=== PATIENT | female | born 1940 | race Hispanic/Latino ===

== ENCOUNTER 2020-03-07 07:07 | Day surgery (SDC) | payer MEDICARE ==
[2020-03-07] MEDS ORDERED: ASPIRIN EC 325 MG TAB PO NR (07:30)
[2020-03-07] MEDS ORDERED: ASPIRIN EC 325 MG TAB PO ONE (07:40)
[2020-03-07] MEDS: SODIUM CHLORIDE 0.9% 500 ML 500 ML IV SCH ×2 (07:54→09:08)
[2020-03-07] MEDS ORDERED: HEPARIN 10,000 UNITS/10 ML VIAL ONE (08:27)
[2020-03-07] MEDS ORDERED: HEPARIN/NS 5000 UNIT/500ML 1,000 ML IR ONE (08:27)
[2020-03-07] MEDS ORDERED: LIDOCAINE (2%) 20 MG/1 ML VIAL 20 ML MDV INFILTRATI ONE (08:28)
[2020-03-07] MEDS ORDERED: VERAPAMIL 5 MG/2 ML INJ ONE (08:28)
[2020-03-07] MEDS ORDERED: NITROGLYCERIN SYRINGE 3 ML ONE (08:28)
[2020-03-07] MEDS: fentaNYL 100 MCG/2 ML INJ ONE ×2 (09:14→09:26)
[2020-03-07] MEDS: MIDAZOLAM 2 MG/2 ML INJ ONE ×2 (09:14→09:26)
[2020-03-07] MEDS ORDERED: MIDAZOLAM 2 MG/2 ML INJ ONE (09:46)
[2020-03-07] MEDS ORDERED: fentaNYL 100 MCG/2 ML INJ ONE (09:47)
--- NOTE | 2020-03-07 10:31 | Cardiac Catherization Report ---
INDICATION FOR PROCEDURE: The patient is a 80-year-old white female with history of hypertension, hyperlipidemia, was scheduled for preoperative clearance and the patient denies any symptoms suggestive of angina with her usual activities. However, was noted to have abnormal stress nuclear imaging, hence scheduled for cardiac catheterization for definitive diagnosis and treatment. The patient wants to have her knee replacement. The patient is aware of the procedure, potential complications and alternatives of therapy available. DESCRIPTION OF PROCEDURE: The patient was brought to the catheterization laboratory in a fasting condition. The patient was evaluated for moderate sedation and was felt to be an appropriate candidate for moderate sedation, received IV Versed and fentanyl. Subsequently, the patient was prepared in a standard fashion. Right radial artery area was cleansed with chlorhexidine solution and sterile drapes were applied. Local anesthesia was given using 2% Xylocaine. Right radial artery puncture was made using 21-gauge arterial puncture needle. A 5-Micronesian slender radial sheath was inserted without difficulty. The patient received 5 mg of intra-arterial verapamil and 3000 units of intravenous heparin. A 5-Micronesian multipurpose catheter was used to obtain the angiograms of the left coronary artery in multiple views followed by angiograms of the left ventricle done in ROBERTSON projection using hand injection. The right coronary artery is arising somewhat low and anomalously and difficult to cannulate. Finally, I was able to cannulate with AR1 diagnostic catheter. However, it is to be noted that it is difficult to manipulate the catheters because of significant radial spasm and the patient is complaining of pain in spite of giving adequate anesthesia and also intra-arterial nitroglycerin. The patient is having difficulty when inserting 5-Micronesian catheters and probably going to be difficult to use 6-Micronesian catheters through the right radial artery. After obtaining the coronary angiograms, catheters and sheath were removed and radial band applied for good hemostasis. The patient tolerated the procedure well except the forearm pain during manipulation and elevated systolic blood pressure around 170-200 mmHg. EKG showed sinus rhythm with frequent PVCs. The patient's sedation started at 9:17 a.m. and ended at 9:55 a.m. At the end of the procedure, the patient is breathing normally, communicating normally with no focal deficits. The patient was transferred to the room in stable condition. Following findings were noted. HEMODYNAMICS: 1. Aortic pressure 191/86. Left ventricular pressure 194/26. No gradient across the aortic valve. Estimated ejection fraction 55%. 2. Left ventriculogram done in ROBERTSON projection showed normal-sized left ventricle with normal contractility. Mitral regurgitation could not be evaluated because of limited amount of dye injected. End-diastolic pressure is elevated up to 26 mmHg. 3. Right coronary artery arises somewhat anomalously low and anteriorly and difficult to cannulate. This is a dominant vessel, showing only minimal irregularities. 4. Left coronary artery arises normally from left coronary cusp. Left main without significant disease. LAD is relatively small caliber vessel. This showed diffuse disease, 30% to 40% to the proximal one-third and in the middle one-third, there is a focal 50% lesion. Mid LAD and distal LAD without significant disease. However, the patient has proximal and mid LAD disease, caliber of the vessel in this area being 2 mm in diameter. 5. Circumflex artery shows only minimal irregularities. Collaterals none. FINAL IMPRESSION: 1. Normal-sized left ventricle with normal contractility. 2. Anomalously arising RCA, but only minimal irregularities noted. LAD showed diffuse proximal disease, 30-40% along with a focal 50% or so lesion. There appears to be moderate diffuse disease in the LAD. As mentioned above, circumflex artery and RCA without significant disease. The patient is not having any chest pain at this point with her usual activities. Considering she is asymptomatic and only moderate disease in the LAD, the patient can be continued on medical therapy. This being done as a preoperative evaluation, the patient can undergo her knee replacement under medical therapy. I would suggest using femoral approach on the next time if she needs any further angiography. The patient tolerated the procedure well and the patient was having systolic hypertension throughout the procedure, 170-200 mmHg. JOB# [id number] ROYA/SCOOBY
[2020-03-07] MEDS ORDERED: traMADol 50 MG TAB ONE (11:44)
[2020-03-07] MEDS ORDERED: traMADol 50 MG TAB PO ONE (12:00)
--- NOTE | 2020-03-07 14:17 | Short Stay Summary ---
Short Stay Documentation Date of service: 03/07/20 - History H&P: obtained from office - Allergies and Medications Current Medications: Allergies nickel Allergy (Verified 03/07/20 07:29) Itching Sulfa (Sulfonamide Antibiotics) Allergy (Verified 03/07/20 07:29) Unknown codeine Adverse Reaction (Verified 03/07/20 07:29) Unknown hallucinations Home Medications Medication Instructions Recorded Confirmed Last Taken Type AtorvaSTATin [Lipitor] 40 mg PO QHS #30 tab 03/07/20 Unknown Rx DULoxetine [Cymbalta] 60 mg PO QDAY 03/07/20 03/07/20 03/06/20 History Levothyroxine [Synthroid] 125 mcg PO QAM 03/07/20 03/07/20 03/06/20 History Metoprolol [Lopressor TAB] 50 mg PO BID #60 tablet 03/07/20 Unknown Rx Pantoprazole [Protonix] 40 mg PO QDAY 03/07/20 03/07/20 03/06/20 History Pravastatin [Pravachol] 40 mg PO QHS 03/07/20 03/07/20 03/06/20 History traMADoL [Ultram] 50 mg PO Q6HR PRN 03/07/20 03/07/20 03/06/20 History Active Medications Sodium Chloride (Nacl 0.9% 500 Ml) 500 mls @ 50 mls/hr IV DIRECT JONG Stop: 03/07/20 17:59 Last Admin: 03/07/20 09:08 Dose: 50 mls/hr Documented by: - Brief post op/procedure progress note Date of procedure: 03/07/20 Pre-op diagnosis: abnormal stress test Post-op diagnosis: other (mild CAD) Procedure: [facility] - see dictated cath report Anesthesia: local Estimated blood loss: none Condition: stable - Disposition Condition at discharge: Good Disposition: [id number] TO HOME OR SELFCARE - Discharge Diagnoses (1) Mild CAD Status: Chronic Short Stay Discharge Plan Activity: advance as tolerated Diet: low fat, low cholesterol, low salt Wound: open to air, keep clean and dry, per your surgeon's advice Follow up with: LDIIA DENISE MD [Staff Physician] - 7 Days JACY RODRIGUEZ MD [Primary Care Provider] - 7 Days Forms: CardCath PCI D/C Instructions Prescriptions: AtorvaSTATin [Lipitor] 40 mg PO QHS #30 tab Metoprolol [Lopressor TAB] 50 mg PO BID #60 tablet
[2020-03-07 15:32] VITALS: BP 151/58
== END 2020-03-07 14:30 | disposition home or self-care (01) ==
LOC: CATHLABREC 07:07
PROVIDERS: ATTEND Internal Medicine
DX: R94.39 Abnormal result of other cardiovascular function study (principal); I25.10 Atherosclerotic heart disease of native coronary artery without angina pectoris; E03.9 Hypothyroidism, unspecified; D64.9 Anemia, unspecified; M19.90 Unspecified osteoarthritis, unspecified site; E78.5 Hyperlipidemia, unspecified; K21.9 Gastro-esophageal reflux disease without esophagitis; Z88.2 Allergy status to sulfonamides; Z88.5 Allergy status to narcotic agent; Z79.899 Other long term (current) drug therapy; Z87.01 Personal history of pneumonia (recurrent); Z90.710 Acquired absence of both cervix and uterus; Z98.890 Other specified postprocedural states; Z88.8 Allergy status to other drugs, medicaments and biological substances; Z82.49 Family history of ischemic heart disease and other diseases of the circulatory system
CPT/HCPCS: 93005; 93458; 99156; 99157; C1894; J1644; J2250; J3010; J7040; Q9967